=== PATIENT | female | born 1985 | race Caucasian/White ===

== ENCOUNTER 2016-12-17 20:44 | Emergency (ER) | payer SELFPAY ==
[~2016-12-17] VITALS: Ht 167.6 cm; Wt 88.2 kg
[~2016-12-17 20:44] MED LIST: CEPHALEXIN500 M1 PO; FLEXERIL10 MG PO; LORTAB 5/500 501 TAB PO; NAPROSYN PO; NO HOME MEDICATIONS; NORCO 325 MG-51 TAB PO; SEASONIQUE1 TAB PO; VALIUM 5MG T5 MG/TAB PO
[2016-12-17 20:46] VITALS: TEMP 97.5
[2016-12-17] MEDS ORDERED: AMOXICILLIN 8751 TAB PO (20:53)
[2016-12-17] MEDS ORDERED: PREDNISONE10 MG (20:53)
[2016-12-17] MEDS ORDERED: ZITHROMAX Z PA250 MG PO (22:30)
[2016-12-17 23:02] VITALS: BP 127/94; PULSE 84
== END 2016-12-17 23:08 | disposition home or self-care (01) ==
LOC: COL.ER 20:44
DX: R06.00 Dyspnea, unspecified (principal); R07.0 Pain in throat; T36.0X5A Adverse effect of penicillins, initial encounter; H66.93 Otitis media, unspecified, bilateral; R05 Cough; F17.210 Nicotine dependence, cigarettes, uncomplicated
CPT/HCPCS: J1200; J2930; J7030

== ENCOUNTER 2017-08-28 01:59 | Emergency (ER) | payer OTHER ==
[~2017-08-28] VITALS: Ht 167.6 cm; Wt 85.9 kg
[~2017-08-28 01:59] MED LIST changes: +AMOXICILLIN 8751 TAB PO; +PREDNISONE10 MG; +ZITHROMAX Z PA250 MG PO
[2017-08-28 02:59] LABS: BASO # 0.1 (0.0-0.2); EOS # 0.1 (0.0-0.7); EOS % 1.4 % (0-4.0); GRAN # 6.3 (1.4-6.5); GRAN % 62.4 % (42.2-75.2); HEMATOCRIT 40.1 % (37.0-47.0); HEMOGLOBIN 13.3 g/dl (12.5-16.0); LYMPH # 2.8 (1.2-3.4); LYMPH % 27.6 % (20.0-51.0); MEAN CELL VOLUME 85 fl (80.0-100.0); MEAN CORPUSCULAR HEMOGLOBIN 28 pg (27.0-31.0); MEAN CORPUSCULAR HGB CONC 33 g/dl (33.0-37.0); MEAN PLATELET VOLUME 10.3 fl (7.4-10.4); MONO # 0.7 (0.1-0.6); MONO % 7.3 % (1.7-9.3); PLATELET COUNT 310 K/mm3 (130-400); RED BLOOD COUNT 4.72 M/mm3 (4.10-5.30); REDCELL DISTRIBUTION WIDTH-CV 12.8 % (11.5-14.5)
[2017-08-28 03:06] LABS: ALBUMIN 4.5 gm/dL (3.5-5.0); BILIRUBIN,TOTAL 0.5 mg/dL (0.0-1.0); CALCIUM 9.1 mg/dL (8.4-10.2); CREATININE, serum 0.77 mg/dL (0.52-1.25); POTASSIUM 3.6 mmol/L (3.4-5.0); TOTAL PROTEIN 7.2 gm/dL (6.4-8.2)
[2017-08-28 03:43] LABS: COLLECTION METHOD CLEAN CATCH
[2017-08-28 03:54] LABS: MUCOUS Present /lpf; PH 5 (5-8); URINE APPEARANCE Hazy; URINE BACTERIA Rare /hpf; URINE BILIRUBIN Negative (NEGATIVE); URINE BLOOD 1+ (NEGATIVE); URINE COLOR Yellow; URINE GLUCOSE Negative (NEGATIVE); URINE KETONE Negative (NEGATIVE); URINE LEUKOCYTE ESTERASE Negative (NEGATIVE); URINE NITRATE Negative (NEGATIVE); URINE PROTEIN(semi-quant) Negative (NEGATIVE); URINE UROBILINOGEN >=4.0 mg/dL (NEGATIVE)
[2017-08-28 05:41] VITALS: TEMP 98.2
[2017-08-28] MEDS ORDERED: MIRALAX 255 GM255 GM PO (06:09)
[2017-08-28] MEDS ORDERED: PROCTO PAK RC (06:09)
[2017-08-28] MEDS ORDERED: ZOFRAN 4MG T4 MG/TAB PO (06:13)
[2017-08-28 06:30] VITALS: BP 119/86; PULSE 93
== END 2017-08-28 06:33 | disposition home or self-care (01) ==
LOC: COL.ER 01:59
PROVIDERS: Nurse Practitioner Primary Care
DX: K64.4 Residual hemorrhoidal skin tags (principal); K59.00 Constipation, unspecified; F17.210 Nicotine dependence, cigarettes, uncomplicated
CPT/HCPCS: J1170; J2405; J7030; Q9967

== ENCOUNTER 2018-02-14 20:45 | Emergency (ER) | payer SELFPAY ==
[~2018-02-14] VITALS: Ht 165.1 cm; Wt 86.4 kg
[~2018-02-14 20:45] MED LIST changes: +MIRALAX 255 GM255 GM PO; +PROCTO PAK RC; +ZOFRAN 4MG T4 MG/TAB PO
[2018-02-14 20:48] VITALS: BP 134/92; TEMP 98.3
[2018-02-14] MEDS ORDERED: PAXIL 20MG20 MG PO (20:54)
[2018-02-14] MEDS ORDERED: CEPHALEXIN500 M1 PO (21:39)
[2018-02-14 21:48] VITALS: PULSE 105
== END 2018-02-14 21:48 | disposition home or self-care (01) ==
LOC: COL.ER 20:45
DX: S96.911A Strain of unspecified muscle and tendon at ankle and foot level, right foot, initial encounter (principal); F17.210 Nicotine dependence, cigarettes, uncomplicated; Z90.89 Acquired absence of other organs; Z98.890 Other specified postprocedural states; W22.8XXA Striking against or struck by other objects, initial encounter; Y92.009 Unspecified place in unspecified non-institutional (private) residence as the place of occurrence of the external cause

== ENCOUNTER 2018-04-16 22:28 | Emergency (ER) | payer SELFPAY ==
[~2018-04-16] VITALS: Ht 167.6 cm; Wt 86.4 kg
[~2018-04-16 22:28] MED LIST changes: +PAXIL 20MG20 MG PO
[2018-04-16 22:31] VITALS: TEMP 97.8
[2018-04-16 22:57] LABS: HEMATOCRIT 37.8 % (37.0-47.0); HEMOGLOBIN 13.3 g/dl (12.5-16.0); MEAN CELL VOLUME 81 fl (80.0-100.0); MEAN CORPUSCULAR HEMOGLOBIN 28 pg (27.0-31.0); MEAN CORPUSCULAR HGB CONC 35 g/dl (33.0-37.0); MEAN PLATELET VOLUME 10.7 fl (7.4-10.4); PLATELET COUNT 296 K/mm3 (130-400); RED BLOOD COUNT 4.68 M/mm3 (4.10-5.30); REDCELL DISTRIBUTION WIDTH-CV 12.9 % (11.5-14.5)
[2018-04-16 23:10] LABS: ALBUMIN 4.3 gm/dL (3.5-5.0); BILIRUBIN,TOTAL 0.7 mg/dL (0.0-1.0); C-REACTIVE PROTEIN 3.2 mg/dL (0.0-0.9); CALCIUM 9.2 mg/dL (8.4-10.2); CREATININE, serum 0.7 mg/dL (0.52-1.25); POTASSIUM 3.3 mmol/L (3.4-5.0); TOTAL PROTEIN 7.5 gm/dL (6.4-8.2)
[2018-04-16 23:45] LABS: COLLECTION METHOD CLEAN CATCH
[2018-04-16 23:56] LABS: MUCOUS Present /lpf; PH 5 (5-8); URINE APPEARANCE Hazy; URINE BACTERIA Rare /hpf; URINE BILIRUBIN Negative (NEGATIVE); URINE BLOOD 1+ (NEGATIVE); URINE COLOR Amber; URINE GLUCOSE Negative (NEGATIVE); URINE KETONE Trace (NEGATIVE); URINE LEUKOCYTE ESTERASE Negative (NEGATIVE); URINE NITRATE Negative (NEGATIVE); URINE PROTEIN(semi-quant) 1+ (NEGATIVE); URINE UROBILINOGEN >=4.0 mg/dL (NEGATIVE)
[2018-04-17 00:34] LABS: BAND 3 % (0-10); BASOPHIL 1 % (0-2); EOSINOPHIL 2 % (0-4); METAMYELOCYTE 1 % (0-0); NEUTROPHILS 49 % (42.0-75.2)
[2018-04-17 00:35] LABS: LYMPHOCYTE 41 % (20.0-51.0)
[2018-04-17 00:37] LABS: MICROCYTOSIS 1+; PLATELET ESTIMATE NORMAL (NORMAL)
[2018-04-17] MEDS ORDERED: CIPRO 500MG TA500 MG PO (00:57)
[2018-04-17 01:04] VITALS: BP 101/68; PULSE 102
[2018-04-17 08:12] LABS: PATHOLOGY DIFF REVIEW OK +
== END 2018-04-17 01:09 | disposition home or self-care (01) ==
LOC: COL.ER 22:28
PROVIDERS: Nurse Practitioner Primary Care
DX: N39.0 Urinary tract infection, site not specified (principal); F17.210 Nicotine dependence, cigarettes, uncomplicated
CPT/HCPCS: J1170; J1885; J2405; J7030; Q9967

== ENCOUNTER 2019-08-28 10:22 | Emergency (ER) | payer MEDICAID ==
[~2019-08-28] VITALS: Ht 165.1 cm; Wt 81.8 kg
[~2019-08-28 10:22] MED LIST changes: +CIPRO 500MG TA500 MG PO
[2019-08-28 10:44] VITALS: TEMP 98.6
[2019-08-28 12:10] LABS: HEMATOCRIT 40.2 % (37.0-47.0); HEMOGLOBIN 13.2 g/dl (12.5-16.0); MEAN CELL VOLUME 85 fl (80.0-100.0); MEAN CORPUSCULAR HEMOGLOBIN 28 pg (27.0-31.0); MEAN CORPUSCULAR HGB CONC 33 g/dl (33.0-37.0); MEAN PLATELET VOLUME 10.3 fl (7.4-10.4); PLATELET COUNT 357 K/mm3 (130-400); RED BLOOD COUNT 4.76 M/mm3 (4.10-5.30); REDCELL DISTRIBUTION WIDTH-CV 13.8 % (11.5-14.5)
[2019-08-28 12:29] LABS: BAND 6 % (0-10); EOSINOPHIL 3 % (0-4); LYMPHOCYTE 25 % (20.0-51.0); NEUTROPHILS 61 % (42.0-75.2); PLATELET ESTIMATE NORMAL (NORMAL)
[2019-08-28 12:59] LABS: ERYTHROCYTE SEDIMENTATION RATE 1 mm/hr (0-20)
[2019-08-28] MEDS ORDERED: DOXYCYCLINE HY100 MG PO (14:43)
[2019-08-28] MEDS ORDERED: CEPHALEXIN500 M1 PO (14:43)
[2019-08-28 15:20] VITALS: BP 112/88; PULSE 106
== END 2019-08-28 15:25 | disposition home or self-care (01) ==
LOC: COL.ER 10:22
PROVIDERS: Emergency Medicine
DX: T43.621A Poisoning by amphetamines, accidental (unintentional), initial encounter (principal); M79.642 Pain in left hand; M79.632 Pain in left forearm
CPT/HCPCS: J1885; J2060; J2270; J2550; J7040; Q4021

== ENCOUNTER 2019-08-28 21:09 | Inpatient (IN) | payer MEDICAID ==
[~2019-08-28] VITALS: Ht 165.1 cm; Wt 101.0 kg
[~2019-08-28 21:09] MED LIST changes: +DOXYCYCLINE HY100 MG PO
[2019-08-28 22:03] LABS: BASO # 0.1 (0.0-0.2); BASO % 0.4 % (0.0-2.0); EOS # 0.1 (0.0-0.7); EOS % 0.4 % (0-4.0); GRAN # 10.6 (1.4-6.5); HEMOGLOBIN 12.1 g/dl (12.5-16.0); LYMPH # 2.5 (1.2-3.4); LYMPH % 17.3 % (20.0-51.0); MEAN CELL VOLUME 83 fl (80.0-100.0); MEAN CORPUSCULAR HEMOGLOBIN 28 pg (27.0-31.0); MEAN CORPUSCULAR HGB CONC 34 g/dl (33.0-37.0); MEAN PLATELET VOLUME 9.7 fl (7.4-10.4); MONO # 1.3 (0.1-0.6); MONO % 8.6 % (1.7-9.3); PLATELET COUNT 325 K/mm3 (130-400); RED BLOOD COUNT 4.36 M/mm3 (4.10-5.30); REDCELL DISTRIBUTION WIDTH-CV 13.5 % (11.5-14.5)
[2019-08-28 22:06] LABS: HEMATOCRIT 36.1 % (37.0-47.0)
[2019-08-28 22:07] LABS: COLLECTION METHOD CLEAN CATCH
[2019-08-28 22:13] LABS: ALBUMIN 3.8 gm/dL (3.5-5.0); BILIRUBIN,TOTAL 0.9 mg/dL (0.0-1.0); CALCIUM 8.3 mg/dL (8.4-10.2); CREATININE, serum 0.7 (0.52-1.25); POTASSIUM 4.1 mmol/L (3.4-5.0); TOTAL PROTEIN 6.8 gm/dL (6.4-8.2)
[2019-08-28 22:15] LABS: MUCOUS Present /lpf; PH 7 (5-8); SQUAMOUS EPITHELIAL 20-50 /hpf; URINE APPEARANCE Cloudy; URINE BACTERIA Rare /hpf; URINE BILIRUBIN Negative (NEGATIVE); URINE BLOOD Negative (NEGATIVE); URINE COLOR Amber; URINE GLUCOSE Negative (NEGATIVE); URINE KETONE Negative (NEGATIVE); URINE LEUKOCYTE ESTERASE Negative (NEGATIVE); URINE NITRATE Negative (NEGATIVE); URINE PROTEIN(semi-quant) 1+ (NEGATIVE); URINE UROBILINOGEN >=4.0 mg/dL (NEGATIVE)
[2019-08-28 23:25] LABS: TRICYCLIC ANTIDEPRESS URINE NEGATIVE
[2019-08-29] VITALS (733 sets, daily range): BP systolic 105–116; BP diastolic 72–84; PULSE 102–121; TEMP 98.9–99.5; O2SAT 93–100
--- NOTE | 2019-08-29 00:01 | NUR ---
PT arrived to unit at 2359 via ER stretcher accompanied by VERA Rojas. PT ambulated to unit bed with no mobility issues and undressed herself to change into hospital gown. PT c/o pain to her left hand with touch and movement, told PT this RN would check into pain medication options. Oriented PT to room and POC for the evening. Will continue to educate and monitor.
[2019-08-29 01:03] LABS: HIV 1/2 Antibodies Non-Reactive; HIV-1p24 Antigen Non-Reactive
[2019-08-29 01:14] LABS: INR 1.2 (0.8-3.0); PROTHROMBIN TIME 13.6 SECONDS (9.7-12.8)
[2019-08-29 01:16] LABS: C-REACTIVE PROTEIN 1.2 mg/dL (0.0-0.9)
[2019-08-29 01:21] LABS: SALICYLATE < 1.0 mg/dL
[2019-08-29 01:25] LABS: TROPONIN-I < 0.012 ng/mL (0.000-0.035)
--- NOTE | 2019-08-29 19:12 | NUR ---
Called CLOTH ROLL WINDER per pt request about additional pain meds. CLOTH ROLL WINDER stated to use PRN ativan but unable to do more narcotics at this time. Report given to Loyda GAMEZ and care transfered.
--- NOTE | 2019-08-29 19:45 | NUR ---
Assessment complete; vs stable. Left arm assessed. Warm and tender to touch. Radial pulse palpated. Able to wiggle fingers on command. Assisted to elevate and place on ice. Will continue to monitor.
[2019-08-30] VITALS (230 sets, daily range): BP systolic 97–131; BP diastolic 86–94; PULSE 91–110; TEMP 97.7–100.1; O2SAT 93–100
--- NOTE | 2019-08-30 00:20 | NUR ---
Hospitalist notfied of patient's temp of 100.1. Currenlty receiving abx. Hostess Cashier order for motrin PRN if needed. Temp re-checked and was 99.8. Will continue to monitor.
[2019-08-30 04:58] LABS: BASO # 0.1 (0.0-0.2); BASO % 0.5 % (0.0-2.0); EOS # 0.2 (0.0-0.7); EOS % 1.3 % (0-4.0); GRAN # 8.7 (1.4-6.5); GRAN % 68.1 % (42.2-75.2); HEMOGLOBIN 10.8 g/dl (12.5-16.0); LYMPH # 2.5 (1.2-3.4); LYMPH % 19.7 % (20.0-51.0); MEAN CELL VOLUME 86 fl (80.0-100.0); MEAN CORPUSCULAR HEMOGLOBIN 28 pg (27.0-31.0); MEAN CORPUSCULAR HGB CONC 33 g/dl (33.0-37.0); MEAN PLATELET VOLUME 9.7 fl (7.4-10.4); MONO # 1.3 (0.1-0.6); PLATELET COUNT 252 K/mm3 (130-400); RED BLOOD COUNT 3.86 M/mm3 (4.10-5.30); REDCELL DISTRIBUTION WIDTH-CV 13.6 % (11.5-14.5)
[2019-08-30 05:16] LABS: INR 1.2 (0.8-3.0); PROTHROMBIN TIME 14.2 SECONDS (9.7-12.8)
[2019-08-30 05:26] LABS: ALBUMIN 3.1 gm/dL (3.5-5.0); BILIRUBIN,TOTAL 0.9 mg/dL (0.0-1.0); CALCIUM 7.7 mg/dL (8.4-10.2); CREATININE, serum 0.54 (0.52-1.25); POTASSIUM 3.6 mmol/L (3.4-5.0); TOTAL PROTEIN 6.2 gm/dL (6.4-8.2)
--- NOTE | 2019-08-30 07:23 | NUR ---
Report received from Loyda GAMEZ and care resumed.
--- NOTE | 2019-08-30 10:30 | NUR ---
Dr Slater in to see pt at this time.
--- NOTE | 2019-08-30 16:25 | NUR ---
RICKEY somers met with the patient to complete intial assessment. The patient lives in [place] with her mother, Meaghan. The patient denies DME usage and reports independence with ADLs. The patient does not have a PCP, list of [place] physicians was provided. The patient receives medications from [facility] with no difficulties. The patient does not have advanced directives in the EMR. RICKEY somers addressed possible drug treatment. The patient reports she has an appointment at [facility] on 09/03 for an evaluation then she will be placed in the first available facility. The patient inquired about sending a information to the court about her hospitalization. The patient reports she does have court this day. RICKEY somers contacted the [facility] and was informed to fax or email [email or web address] a letter stating date of admission and anticipated discharge date. medical staff services coordinator will continue to follow.
--- NOTE | 2019-08-30 17:39 | NUR ---
Report called to Faith GAMEZ. Pt to transfer to room 341/
--- NOTE | 2019-08-30 17:45 | NUR ---
Patient arrived to floor from ICU via bed. Patient is alert and oriented. Transfer orders placed. Patient denies needs at this time, call light within reach.
--- NOTE | 2019-08-30 20:00 | NUR ---
PATIENT RESTING IN BED DURING SHIFT CHANGE REPORT FROM DAY SHIFT NURSE. NO NEEDS REPORTED, IVF INFUSING WITH NO PROBLEMS. PATIENT UP IN ROOM WITH NO REPORTED PROBLEMS.
--- NOTE | 2019-08-31 01:13 | NUR ---
PATIENT RESTING QUIETLY IN BED, EYES CLOSED, AWAKENS WITH NAME CALLED. SEE eMAR FOR MEDS GIVEN. IVF INFUSING WITH NO PROBLEMS. NO OTHER NEEDS REPORTED.
[2019-08-31 03:31] VITALS: BP 101/74; PULSE 92; TEMP 97.5
--- NOTE | 2019-08-31 05:18 | NUR ---
IV SITE TO RIGHT FOREARM, CLOTTED OFF, DISCONTINUED. WILL ATTEMPT IV RESTART, PATIENT STATES HAS HX OF VENIPUNCTURE DIFFICULTIES. C/O HEADACHE PRIOR TO GOING TO SLEEP, BREATHING NONLABORED AND EVEN.
[2019-08-31 06:18] LABS: ALBUMIN 3.4 gm/dL (3.5-5.0); BILIRUBIN,TOTAL 1.2 mg/dL (0.0-1.0); CREATININE, serum 0.44 (0.52-1.25); POTASSIUM 4.7 mmol/L (3.4-5.0); TOTAL PROTEIN 6.8 gm/dL (6.4-8.2)
[2019-08-31 06:36] LABS: BASO % 0.3 % (0.0-2.0); EOS # 0.3 (0.0-0.7); EOS % 3.5 % (0-4.0); GRAN # 5.6 (1.4-6.5); GRAN % 63.9 % (42.2-75.2); LYMPH # 2.1 (1.2-3.4); LYMPH % 23.8 % (20.0-51.0); MEAN CELL VOLUME 83 fl (80.0-100.0); MEAN CORPUSCULAR HEMOGLOBIN 28 pg (27.0-31.0); MEAN CORPUSCULAR HGB CONC 33 g/dl (33.0-37.0); MEAN PLATELET VOLUME 10.4 fl (7.4-10.4); MONO # 0.7 (0.1-0.6); PLATELET COUNT 256 K/mm3 (130-400); RED BLOOD COUNT 3.97 M/mm3 (4.10-5.30); REDCELL DISTRIBUTION WIDTH-CV 13.5 % (11.5-14.5)
--- NOTE | 2019-08-31 06:59 | NUR ---
IV SITE RESTARTED BY VAULT CASHIER, 22 GAUGE CATHETER TO OUTER RIGHT FOREARM.
--- NOTE | 2019-08-31 07:44 | NUR ---
Lying in bed with eyes closed. Left hand with 2+ edema into forearm. Rates pain in left arm 7/10, describes pain as dull throb that is constant. IV positional and keeps occluding. Flushed site without difficulty. Patient denies pain when site flushed. No redness/swelling/discharge from IV site. Patient voices no further needs at this time.
[2019-08-31 07:48] VITALS: BP 153/84; PULSE 101; TEMP 97.8
--- NOTE | 2019-08-31 07:49 | NUR ---
PATIENT RESTING IN BED DURING SHIFT CHANGE REPORT GIVEN TO DAY SHIFT NURSE. IVF INFUSING WITH SOME DIFFICULTY DUE TO POSITIONING OF RUE, SETTING OFF IV PUMP ALARMS, IV SITE CLEAR.
--- NOTE | 2019-08-31 09:24 | NUR ---
Rating pain in left arm 7/10. Administered [place] as prescribed. IV continues to infuse without difficulty, no swelling/redness/discharge from site. Patient voices no further needs.
--- NOTE | 2019-08-31 11:00 | NUR ---
Lying in bed with eyes closed. Opens eyes when name called out. Rates pain 4/10 in left arm. Says that she is feeling "pretty good" at this time. Denies any needs.
--- NOTE | 2019-08-31 11:51 | NUR ---
Maintenance Plumber contacted [facility] and confirmed patient has appointment scheduled for 09/03/2019. SW to continue to follow.
[2019-08-31 12:00] VITALS: BP 135/80; PULSE 91; TEMP 97.4
--- NOTE | 2019-08-31 12:38 | NUR ---
Patient rating pain in left hand 7/10, describes as sharp. Administered Motrin as prescribed. Patient denies further needs at this time.
--- NOTE | 2019-08-31 13:43 | NUR ---
Rating pain in left hand 6/10. Would like [place] for pain. Will administer a prescribed at this time. IV fluids decreased to infuse at 50mL/hr as ordered.
[2019-08-31 15:02] LABS: INR 1.1 (0.8-3.0); PROTHROMBIN TIME 12.7 SECONDS (9.7-12.8)
--- NOTE | 2019-08-31 15:08 | NUR ---
Patient lying in bed with eyes open. Rates pain 3/10 in left hand. Says that she "feels pretty good" right now. Has ordered another tray of food as she is hungry. Explained that we are waiting on her Vanc level to get back prior to hanging her vancomycin. Discussed why vanc level is needed prior to hanging with the patient. Patient denies further needs at this time.
--- NOTE | 2019-08-31 15:21 | NUR ---
Vanc level low. Spoke with pharmacy and they will increase dose and bring up medication.
--- NOTE | 2019-08-31 15:35 | NUR ---
Vancomycin Follow-up Pharmacy Note Current regimen: Vancomcyin 1 gm IV q8h Vancomycin trough: 7.27 Adjustments: Will increase Vancomycin to 1.25 gm IV q8h as trough is subtherapeutic for goal ~10-15. Pharmacy will continue to monitor and check a new Vancomycin trough on 09/01/19.
--- NOTE | 2019-08-31 15:42 | NUR ---
Rating pain 4/10 in left hand. Asks when she will be due for pain medication next. Reviewed with the patient when meds were given last and when due. Patient says that she is able to wait until she is due for her next [place] dose. Vancomycin increased and hung at this time. Patient up independently in room. Denies further needs at this time.
[2019-08-31 16:41] VITALS: BP 131/88; PULSE 87; TEMP 97.6
--- NOTE | 2019-08-31 17:37 | NUR ---
[place] administered as prescribed by VERA Greer, per patient request due to pain in left hand. Patient visiting with spouse in room. Denies further needs.
--- NOTE | 2019-08-31 18:17 | NUR ---
Lying in bed with eyes closed. Opens eyes when name called out. Feels like her pain is getting better, rating pain 5/10. Denies any further needs at this time.
[2019-08-31 19:19] VITALS: BP 118/88; PULSE 91; TEMP 97.2
--- NOTE | 2019-08-31 20:57 | NUR ---
Pt awake in room. Assessment completed. Alert and oriented with vss. mild tachycardia. PT has edema to left hand, 2+. it is reddened and sore. pt has ivf running at 50/hr to left forearm. pt denies c/o mild pain in hand. will treat pain per prn orders. pt ate kaila ayala for dinner brought by her mom and has a mild rash to left arm that she states is itchy. will continue to monitor this. pt denies needs at this time, call light within reach, will continue to monitor
--- NOTE | 2019-08-31 22:42 | NUR ---
Pt rash on left arm seems to be getting worse. small red spots that pt states are itchy. there is 1 spot about a nickel in size that is very red and pt states this particular spot is increasing in pain. will notify hospitalist
[2019-08-31 23:28] VITALS: BP 132/91; PULSE 101; TEMP 97.7
--- NOTE | 2019-08-31 23:36 | NUR ---
hospitalist saw pt. pt is having mild reaction to vanc. 50mg total of benadryl given. will put vanc on hold the rest of the night per hospitalist.
--- NOTE | 2019-09-01 00:47 | NUR ---
Pt sleeping in bed, seems to be comfortable. NS running to IV in right r forearm. Call light within reach, will continue to monitor
[2019-09-01 03:34] VITALS: BP 117/84; PULSE 92; TEMP 97.9
--- NOTE | 2019-09-01 04:03 | NUR ---
Pt still sleeping in bed comfortably. Call light within reach, will continue to monitor
[2019-09-01 08:55] VITALS: BP 104/72; PULSE 89; TEMP 97.4
[2019-09-01 11:46] VITALS: BP 123/71; PULSE 112; TEMP 98.3
[2019-09-01 13:03] LABS: BASO # 0.1 (0.0-0.2); BASO % 0.6 % (0.0-2.0); EOS # 0.3 (0.0-0.7); EOS % 3.9 % (0-4.0); GRAN # 4.4 (1.4-6.5); GRAN % 55.5 % (42.2-75.2); HEMOGLOBIN 11.6 g/dl (12.5-16.0); LYMPH # 2.3 (1.2-3.4); LYMPH % 29.2 % (20.0-51.0); MEAN CELL VOLUME 84 fl (80.0-100.0); MEAN CORPUSCULAR HEMOGLOBIN 27 pg (27.0-31.0); MEAN CORPUSCULAR HGB CONC 33 g/dl (33.0-37.0); MEAN PLATELET VOLUME 10.2 fl (7.4-10.4); MONO # 0.8 (0.1-0.6); MONO % 10.4 % (1.7-9.3); PLATELET COUNT 325 K/mm3 (130-400); RED BLOOD COUNT 4.23 M/mm3 (4.10-5.30); REDCELL DISTRIBUTION WIDTH-CV 13.6 % (11.5-14.5)
[2019-09-01 13:10] LABS: INR 1.1 (0.8-3.0); PROTHROMBIN TIME 12.8 SECONDS (9.7-12.8)
[2019-09-01 13:11] LABS: HEMATOCRIT 35.3 % (37.0-47.0)
[2019-09-01 13:26] VITALS: BP 125/77; PULSE 98; TEMP 98.2
[2019-09-01 13:49] LABS: ALBUMIN 3.7 gm/dL (3.5-5.0); BILIRUBIN,TOTAL 0.6 mg/dL (0.0-1.0); CALCIUM 8.5 mg/dL (8.4-10.2); CREATININE, serum 0.44 (0.52-1.25); POTASSIUM 3.8 mmol/L (3.4-5.0); TOTAL PROTEIN 6.9 gm/dL (6.4-8.2)
[2019-09-01 16:26] VITALS: BP 139/82; PULSE 98; TEMP 98.1
--- NOTE | 2019-09-01 18:00 | NUR ---
Afebrile. Dr. Geller consulted for antibiotic coverage. Medicated with prn [place] for left arm pain. Sleeps between checks. IV fluids and antibiotic infusing.
[2019-09-01 19:26] VITALS: BP 134/74; PULSE 87; TEMP 99.2
--- NOTE | 2019-09-01 20:10 | NUR ---
Pt doing ok. Swelling to right hand has decreased. Still reddened in some areas but looks better than last night. Pt took shower ind. Resting in bed talking on phone. VSS. Pt denies needs at this time. Call light within reach, will continue to monitor
[2019-09-02 00:09] VITALS: BP 128/77; PULSE 82; TEMP 97.8
[2019-09-02 03:47] VITALS: BP 133/86; PULSE 94; TEMP 98
[2019-09-02 08:00] VITALS: BP 150/104; PULSE 115; TEMP 98.1
[2019-09-02] MEDS ORDERED: BACTRIM DS 8001 TAB PO (09:35)
[2019-09-02 10:02] LABS: BASO % 0.5 % (0.0-2.0); EOS # 0.3 (0.0-0.7); EOS % 3.6 % (0-4.0); GRAN # 4.3 (1.4-6.5); GRAN % 55.6 % (42.2-75.2); HEMOGLOBIN 11.3 g/dl (12.5-16.0); LYMPH # 2.3 (1.2-3.4); LYMPH % 30.2 % (20.0-51.0); MEAN CELL VOLUME 83 fl (80.0-100.0); MEAN CORPUSCULAR HEMOGLOBIN 28 pg (27.0-31.0); MEAN CORPUSCULAR HGB CONC 33 g/dl (33.0-37.0); MEAN PLATELET VOLUME 9.5 fl (7.4-10.4); MONO # 0.8 (0.1-0.6); MONO % 9.7 % (1.7-9.3); PLATELET COUNT 312 K/mm3 (130-400); REDCELL DISTRIBUTION WIDTH-CV 13.4 % (11.5-14.5)
[2019-09-02 10:05] LABS: HEMATOCRIT 33.9 % (37.0-47.0)
[2019-09-02 10:13] LABS: ALBUMIN 3.6 gm/dL (3.5-5.0); BILIRUBIN,TOTAL 0.4 mg/dL (0.0-1.0); CALCIUM 8.6 mg/dL (8.4-10.2); CREATININE, serum 0.59 (0.52-1.25); POTASSIUM 3.8 mmol/L (3.4-5.0); TOTAL PROTEIN 6.8 gm/dL (6.4-8.2)
--- NOTE | 2019-09-02 10:21 | NUR ---
Patient alert and oriented, answers questions appropriately. See assessment. LUE with slight redness and edema noted to hand. ROM active to LUE, pulses palpable. No c/o at this time.
[2019-09-02] MEDS ORDERED: NORCO 325 MG-51 TAB PO (10:39)
--- NOTE | 2019-09-02 11:33 | NUR ---
IV to RFA infiltrated while Vancomycin infusing. Minimal edema noted, no redness or streaking noted. Warm pack applied. INT discontinued.
--- NOTE | 2019-09-02 12:37 | NUR ---
Discharge instructions reviewed with patient and family, verbalized understanding. Discharged ambulatory to auto/home with family at 1235.
--- NOTE | 2019-09-02 13:19 | NUR ---
SW was contacted by patients nurse about getting Patient scheduled for a follow up appointment to manage symptoms. SW did contact some agencies to see if there was a possibility to schedule an appt on the weekend with no success.Patient does not currently have a PCP and will need services. JULY printed off possible providers for patient to chosose from. SW discussed options with patient, and she chose 4 different providers, one she had been familiar with as it is her mothers doctor. JULY followed up with patients nurse and informed her that F/U SW will contact and get the patient scheduled for services. Patients contact numbers are [phone], and [phone].
== END 2019-09-02 12:40 | disposition home or self-care (01) | DRG 872 ==
LOC: COL.ER 21:09 → SURG 23:00 → ICU 23:00 → SURG 08-30 18:00
PROVIDERS: Family Medicine; Nurse Practitioner Family; ADMIT Student in an Organized Health Care Education/Training Program
DX: A41.9 Sepsis, unspecified organism (principal); L03.114 Cellulitis of left upper limb; F15.10 Other stimulant abuse, uncomplicated; F31.9 Bipolar disorder, unspecified; F60.3 Borderline personality disorder; B19.20 Unspecified viral hepatitis C without hepatic coma; F17.210 Nicotine dependence, cigarettes, uncomplicated; R73.9 Hyperglycemia, unspecified; R74.0 Nonspecific elevation of levels of transaminase and lactic acid dehydrogenase [LDH]
CPT/HCPCS: 99223-AI; 99232-AI; 99233-AI; 99239; A4216; J0696; J1170; J1200; J2060; J2270; J2543; J2550; J3370; J7030; J7040; J7050

== ENCOUNTER 2019-09-21 21:30 | Emergency (ER) | payer MEDICAID ==
[~2019-09-21] VITALS: Ht 167.6 cm; Wt 94.5 kg
[~2019-09-21 21:30] MED LIST changes: +BACTRIM DS 8001 TAB PO
[2019-09-21 21:39] VITALS: BP 129/83; PULSE 112; TEMP 98.7
[2019-09-21 23:00] LABS: COLLECTION METHOD CLEAN CATCH
[2019-09-21 23:10] LABS: MUCOUS Present /lpf; PH 7 (5-8); URINE APPEARANCE Clear; URINE BACTERIA None Seen /hpf; URINE BILIRUBIN Negative (NEGATIVE); URINE BLOOD Negative (NEGATIVE); URINE COLOR Yellow; URINE GLUCOSE Negative (NEGATIVE); URINE KETONE Negative (NEGATIVE); URINE LEUKOCYTE ESTERASE Negative (NEGATIVE); URINE NITRATE Negative (NEGATIVE); URINE PROTEIN(semi-quant) Negative (NEGATIVE); URINE RBC 0-2 /hpf; URINE UROBILINOGEN >=4.0 mg/dL (NEGATIVE)
== END 2019-09-21 22:28 | disposition home or self-care (01) ==
LOC: COL.ER 21:30
PROVIDERS: Physician Assistant
DX: M54.42 Lumbago with sciatica, left side (principal); F17.210 Nicotine dependence, cigarettes, uncomplicated

== ENCOUNTER → 2019-12-20 | Outpatient (CLI) | payer MEDICAID | LOC: ZCOL.LAB 11:11 | DX: J40 Bronchitis, not specified as acute or chronic (principal); L03.114 Cellulitis of left upper limb; B19.20 Unspecified viral hepatitis C without hepatic coma; A41.9 Sepsis, unspecified organism ==

== ENCOUNTER → 2019-12-25 | Outpatient (CLI) | payer MEDICAID | LOC: COL.LAB 13:59 | DX: A41.9 Sepsis, unspecified organism (principal); B19.20 Unspecified viral hepatitis C without hepatic coma; J40 Bronchitis, not specified as acute or chronic; L03.114 Cellulitis of left upper limb ==

== ENCOUNTER 2020-03-15 18:58 | Emergency (ER) | payer MEDICAID ==
[~2020-03-15] VITALS: Ht 165.1 cm; Wt 86.4 kg
[2020-03-15 19:01] VITALS: BP 130/92; TEMP 98.6
[2020-03-15 20:12] LABS: COLLECTION METHOD CLEAN CATCH
[2020-03-15 20:23] LABS: MUCOUS Present /lpf; PH 7 (5-8); URINE APPEARANCE Hazy; URINE BACTERIA None Seen /hpf; URINE BILIRUBIN Negative (NEGATIVE); URINE BLOOD Negative (NEGATIVE); URINE COLOR Yellow; URINE GLUCOSE Negative (NEGATIVE); URINE KETONE Negative (NEGATIVE); URINE LEUKOCYTE ESTERASE Negative (NEGATIVE); URINE NITRATE Negative (NEGATIVE); URINE PROTEIN(semi-quant) 1+ (NEGATIVE); URINE RBC 0-2 /hpf; URINE UROBILINOGEN >=4.0 mg/dL (NEGATIVE)
[2020-03-15] MEDS ORDERED: PRIL40 PO (20:40)
[2020-03-15 20:51] VITALS: PULSE 90
== END 2020-03-15 20:51 | disposition home or self-care (01) ==
LOC: COL.ER 18:58
PROVIDERS: Nurse Practitioner Primary Care
DX: R51 Headache (principal); K21.9 Gastro-esophageal reflux disease without esophagitis; E86.0 Dehydration; F32.9 Major depressive disorder, single episode, unspecified; F41.9 Anxiety disorder, unspecified; F17.210 Nicotine dependence, cigarettes, uncomplicated; Z90.89 Acquired absence of other organs
CPT/HCPCS: J1170; J1885; J2550; J7030

== ENCOUNTER 2021-03-30 18:01 | Emergency (ER) | payer SELFPAY ==
[~2021-03-30] VITALS: Ht 167.6 cm; Wt 86.4 kg
[~2021-03-30 18:01] MED LIST changes: +PRIL40 PO
[2021-03-30 18:18] VITALS: TEMP 99
[2021-03-30 19:00] VITALS: BP 117/86; PULSE 97
== END 2021-03-30 21:28 | disposition left against medical advice (07) ==
LOC: COL.ER 18:01
DX: U07.1 COVID-19 (principal); Z87.891 Personal history of nicotine dependence

== ENCOUNTER → 2021-11-20 | Outpatient (CLI) | payer SELFPAY ==
[2021-11-20 08:31] LABS: BASO # 0.1 K/mm3 (0.0-0.2); BASO % 0.7 % (0.0-2.0); EOS # 0.3 K/mm3 (0.0-0.7); EOS % 3.6 % (0.0-4.0); GRAN # 4.6 K/mm3 (1.4-6.5); GRAN % 56.1 % (42.2-75.2); HEMATOCRIT 38.5 % (37.0-47.0); LYMPH # 2.7 K/mm3 (1.2-3.4); LYMPH % 32.6 % (20.0-51.0); MEAN CELL VOLUME 82 fl (80.0-100.0); MEAN CORPUSCULAR HEMOGLOBIN 28 pg (27-31); MEAN CORPUSCULAR HGB CONC 34 g/dl (33.0-37.0); MEAN PLATELET VOLUME 9.6 fl (7.4-10.4); MONO # 0.6 K/mm3 (0.1-0.6); MONO % 6.8 % (1.7-9.3); PLATELET COUNT 267 K/mm3 (130-400); RED BLOOD COUNT 4.68 M/mm3 (4.10-5.30); REDCELL DISTRIBUTION WIDTH-CV 13.1 % (11.5-14.5)
[2021-11-20 08:49] LABS: BILIRUBIN,TOTAL 0.7 mg/dL (0.2-1.2); CALCIUM 8.7 mg/dL (8.4-10.2); CHOLESTEROL RISK RATIO 4.7; CREATININE, serum 0.7 mg/dL (0.57-1.11); POTASSIUM 3.5 mmol/L (3.5-4.5)
[2021-11-20 09:10] LABS: THYROID STIMULATING HORMONE 3.08 uIU/mL (0.350-4.940)
== END ==
LOC: COL.LAB 07:42
DX: Z79.899 Other long term (current) drug therapy (principal)

== ENCOUNTER → 2022-03-29 | Outpatient (CLI) | payer OTHER ==
[2022-03-29 09:41] LABS: BASO # 0.1 K/mm3 (0.0-0.2); BASO % 0.6 % (0.0-2.0); EOS # 0.1 K/mm3 (0.0-0.7); EOS % 0.7 % (0.0-4.0); GRAN # 8.2 K/mm3 (1.4-6.5); GRAN % 67.8 % (42.2-75.2); HEMATOCRIT 38.8 % (37.0-47.0); HEMOGLOBIN 12.8 g/dl (12.5-16.0); LYMPH # 2.8 K/mm3 (1.2-3.4); LYMPH % 22.8 % (20.0-51.0); MEAN CELL VOLUME 82 fl (80.0-100.0); MEAN CORPUSCULAR HEMOGLOBIN 27 pg (27-31); MEAN CORPUSCULAR HGB CONC 33 g/dl (33.0-37.0); MEAN PLATELET VOLUME 9.9 fl (7.4-10.4); MONO % 7.9 % (1.7-9.3); PLATELET COUNT 299 K/mm3 (130-400); RED BLOOD COUNT 4.71 M/mm3 (4.10-5.30); REDCELL DISTRIBUTION WIDTH-CV 13.2 % (11.5-14.5)
[2022-03-29 10:03] LABS: BILIRUBIN,TOTAL 1.1 mg/dL (0.2-1.2); CALCIUM 9.2 mg/dL (8.4-10.2); CHOLESTEROL RISK RATIO 4.3; CREATININE, serum 0.72 mg/dL (0.57-1.11); POTASSIUM 3.7 mmol/L (3.5-4.5); TOTAL PROTEIN 7.6 gm/dL (6.2-8.1)
[2022-03-29 10:18] LABS: TSH w REFLEX 2.006 uIU/mL (0.350-4.940)
[2022-03-29 10:57] LABS: HIV 1/2 Antibodies Non-Reactive; HIV-1p24 Antigen Non-Reactive
[2022-03-30] LABS: HEPATITIS B CORE AB,TOTAL Negative (Negative); HEPATITIS B SURFACE ANTIBODY >1000.0 (()); HEPATITIS B SURFACE ANTIGEN Negative (Negative); HEPATITIS C VIRUS ANTIBODY Reactive (Negative)
== END ==
LOC: COL.LAB 08:27
PROVIDERS: Registered Nurse
DX: Z13.5 Encounter for screening for eye and ear disorders (principal); R76.8 Other specified abnormal immunological findings in serum; F19.11 Other psychoactive substance abuse, in remission; R63.5 Abnormal weight gain

== ENCOUNTER → 2023-05-13 | Outpatient (CLI) | payer OTHER ==
[2023-05-13 13:25] LABS: BASO # 0.1 K/mm3 (0.0-0.2); BASO % 0.6 % (0.0-2.0); EOS # 0.1 K/mm3 (0.0-0.7); EOS % 1.4 % (0.0-4.0); GRAN # 6.1 K/mm3 (1.4-6.5); GRAN % 61.1 % (42.2-75.2); LYMPH # 2.9 K/mm3 (1.2-3.4); LYMPH % 29.1 % (20.0-51.0); MEAN CELL VOLUME 80 fl (80.0-100.0); MEAN CORPUSCULAR HEMOGLOBIN 26 pg (27-31); MEAN CORPUSCULAR HGB CONC 33 g/dl (33.0-37.0); MEAN PLATELET VOLUME 10.4 fl (7.4-10.4); MONO # 0.8 K/mm3 (0.1-0.6); MONO % 7.6 % (1.7-9.3); PLATELET COUNT 335 K/mm3 (130-400); RED BLOOD COUNT 4.55 M/mm3 (4.10-5.30); REDCELL DISTRIBUTION WIDTH-CV 14.8 % (11.5-14.5)
[2023-05-13 13:31] LABS: HEMATOCRIT 36.5 % (37.0-47.0)
[2023-05-13 13:45] LABS: ALBUMIN 4.3 gm/dL (3.5-5.0); BILIRUBIN,TOTAL 0.4 mg/dL (0.2-1.2); CALCIUM 9.4 mg/dL (8.4-10.2); CREATININE, serum 0.76 mg/dL (0.57-1.11); POTASSIUM 4.3 mmol/L (3.5-4.5); TOTAL PROTEIN 7.5 gm/dL (6.2-8.1)
[2023-05-13 13:56] LABS: HIV 1/2 Antibodies Non-Reactive; HIV-1p24 Antigen Non-Reactive
== END ==
LOC: COL.LAB 11:03
PROVIDERS: Registered Nurse
DX: Z13.9 Encounter for screening, unspecified (principal); R76.8 Other specified abnormal immunological findings in serum